=== PATIENT | female | born 1995 | race Two or more races ===

== ENCOUNTER 2021-01-30 18:19 | Emergency (ER) | payer MEDICAID, OTHER ==
[~2021-01-30] VITALS: Ht 170.2 cm; Wt 72.6 kg
[2021-01-30 23:36] LABS: Basophils # (auto) 0.1 10 ^3/uL (0-0.2); Basophils % (auto) 0.6 % (0.0-2.0); Eosinophils # (auto) 0.2 10 ^3/uL (0-0.8); Eosinophils % (auto) 2.2 % (0.0-7.0); Hematocrit 41.8 % (36.0-46.0); Hemoglobin 14.1 g/dL (12.2-16.2); Lymphocytes # (auto) 2.8 10 ^3/uL (0.4-5.4); Lymphocytes % (auto) 31.4 % (10.0-50.0); Mean Corpuscular Hemoglobin 28.7 pg (28.0-32.0); Mean Corpuscular Hgb Conc. 33.7 g/dL (32.0-36.0); Mean Corpuscular Volume 85.3 fL (80.0-100.0); Monocytes # (auto) 0.5 10 ^3/uL (0-1.3); Neutrophils # (auto) 5.2 10 ^3/uL (1.6-8.6); Neutrophils % (auto) 59.8 % (37.0-80.0); Platelet Count (auto) 323 10^3/uL (140-450); White Blood Cell 8.8 10^3/uL (4.4-10.8)
[2021-01-30 23:49] LABS: Alanine Aminotransferase 31 U/L (13-56); Anion Gap 9 (5-15); Aspartate Aminotransferase 13 U/L (15-37); BUN/Creatinine Ratio 18.4; Blood Alcohol < 3.0 mg/dL (0-5); Blood Urea Nitrogen 9 mg/dL (7-18); Calcium 8.7 mg/dL (8.5-10.1); Carbon Dioxide 23 mmol/L (21-32); Chloride 106 mmol/L (98-107); GFR African American 195 mL/min; GFR Non-African American 161 mL/min; Glucose 80 mg/dL (74-106); Magnesium 2.2 mg/dL (1.6-2.6); Potassium 3.4 mmol/L (3.5-5.1); Sodium 138 mmol/L (136-145)
[2021-01-30 23:51] LABS: Alkaline Phosphatase 75 U/L (45-117); Bilirubin, Total 0.6 mg/dL (0.2-1.0); Salicylate < 1.7 mg/dL (2.8-20.0); Total Protein 7.6 g/dL (6.4-8.2)
[2021-01-30 23:53] LABS: Acetaminophen < 2.0 ug/mL (10-30)
[2021-01-31 02:59] LABS: Urine Bacteria FEW /hpf (None Seen); Urine Blood Negative /uL (Negative); Urine Hyaline Cast FEW /lpf (0 - 2); Urine Specific Gravity 1.015 (1.001-1.035); Urine WBC 2 /hpf (0 - 5)
[2021-01-31 03:10] LABS: Alcohol, Urine < 3.0 mg/dL (0-10); Amphetamine Screen, Urine NEGATIVE (NEGATIVE); Barbiturate Scree,Urine NEGATIVE (NEGATIVE); Benzodiazephine Screen, Urine POSITIVE (NEGATIVE); Cannabinoid Screen, Urine NEGATIVE (NEGATIVE); Cocaine Screen, Urine NEGATIVE (NEGATIVE); Opiate Scree,Urine NEGATIVE (NEGATIVE); Phencyclidine Screen, Urine NEGATIVE (NEGATIVE)
[2021-01-31] MEDS ORDERED: LORazepam 0.5 MG TAB PO ONE (14:30)
[2021-01-31] MEDS ORDERED: LORazepam 2MG/ML-1ML VIAL IM ONE (15:45)
[2021-02-01 11:10] VITALS: BP 114/64
== END 2021-02-01 11:28 | disposition short-term general hospital (02) ==
LOC: EDBD 18:19 → ER 18:24
DX: R44.1 Visual hallucinations (principal); F31.9 Bipolar disorder, unspecified; F41.9 Anxiety disorder, unspecified; Z20.822 Contact with and (suspected) exposure to COVID-19
CPT/HCPCS: 36415; 70450; 80053; 80307; 80320; 80329; 81001; 81025; 83735; 85025; 87426; 96372; 99285; C9803; J2060; U0003

== ENCOUNTER → 2022-05-04 | Emergency (ER) | payer MEDICAID ==
[~2022-05-04] VITALS: Ht 165.1 cm; Wt 81.6 kg
[2022-05-04 06:54] VITALS: BP 140/98
== END | disposition left against medical advice (07) ==
LOC: EDBD 06:32 → ER 06:32 → EDUNIT# 06:32
DX: R10.9 Unspecified abdominal pain (principal); Z53.21 Procedure and treatment not carried out due to patient leaving prior to being seen by health care provider